=== PATIENT | female | born 1970 | race Caucasian/White ===

== ENCOUNTER 2018-09-08 08:58 | Outpatient (CLI) | payer OTHER ==
[2018-09-19] MEDS ORDERED: PREN1TAB98 PO (10:18)
[2018-09-19] MEDS ORDERED: OMEG1CAP57 PO (10:18)
[2018-09-19] MEDS ORDERED: LYSI500T PO (10:18)
== END 2018-09-08 23:59 | disposition home or self-care (01) ==
LOC: ROC 08:58
PROVIDERS: ATTEND Radiology Radiation Oncology
DX: C76.3 Malignant neoplasm of pelvis (principal); C51.9 Malignant neoplasm of vulva, unspecified; Z90.49 Acquired absence of other specified parts of digestive tract; Z88.6 Allergy status to analgesic agent; Z87.891 Personal history of nicotine dependence; Z80.51 Family history of malignant neoplasm of kidney; Z80.52 Family history of malignant neoplasm of bladder; Z82.49 Family history of ischemic heart disease and other diseases of the circulatory system; Z80.8 Family history of malignant neoplasm of other organs or systems
CPT/HCPCS: 99214; G0463

== ENCOUNTER → 2018-09-18 | Outpatient (CLI) | payer OTHER ==
[~2018-09-18] VITALS: Ht 165.1 cm; Wt 65.3 kg
[~2018-09-18] MED LIST: LYSI500T PO; OMEG1CAP57 PO; PREN1TAB98 PO; SODIUM CHLORIDE 0.9% 1,000ML IVBOLUS ONE
== END | disposition home or self-care (01) ==
LOC: RAD 12:53
PROVIDERS: ATTEND Specialist
DX: Z45.2 Encounter for adjustment and management of vascular access device (principal); C51.9 Malignant neoplasm of vulva, unspecified
CPT/HCPCS: 36573; C1751

== ENCOUNTER 2018-10-05 07:43 | Emergency (ER) | payer OTHER ==
[~2018-10-05] VITALS: Ht 165.1 cm; Wt 65.0 kg
[~2018-10-05 07:43] MED LIST changes: -SODIUM CHLORIDE 0.9% 1,000ML IVBOLUS ONE
[2018-10-05] MEDS ORDERED: SODIUM CHLORIDE 0.9% 1,000ML IVBOLUS ONE (08:30)
[2018-10-05] MEDS ORDERED: ACETAMINOPHEN 500 MG TABLET PO ONE (08:30)
[2018-10-05 09:06] LABS: BASOPHILS # (AUTO) 0.02 x10^3/uL (0-0.1); BASOPHILS % (AUTO) 0 % (0-1); EOSINOPHILS # (AUTO) 0.03 x10^3/uL (0-0.4); EOSINOPHILS % (AUTO) 1 % (1-7); LYMPHOCYTES # (AUTO) 0.38 x10^3/uL (1-3.4); LYMPHOCYTES % (AUTO) 7 % (22-44); MD NO; MEAN CORPUSCULAR HEMOGLOBIN 30.1 pg (27.0-34.8); MEAN CORPUSCULAR HGB CONC 33.4 g/dL (32.4-35.8); MEAN PLATELET VOLUME 8.3 fL (7.4-10.4); MONOCYTES % (AUTO) 9 % (2-9); NEUTROPHILS # (AUTO) 4.43 x10^3/uL (1.8-6.8); NEUTROPHILS % (AUTO) 83 % (42-75); PLATELET COUNT 178 x10^3/uL (130-400); RED CELL DISTRIBUTION WIDTH 13.9 % (9.6-15.2)
--- NOTE | 2018-10-05 09:10 | NUR ---
PICC LINE LEFT ARM ACCESSED WITH CAP CHANGED USING STERILE TECHNIQUE. FLUIDS INFUSING.
[2018-10-05 09:20] LABS: ALANINE AMINOTRANSFERASE 54 U/L (12-78); ALBUMIN 3.2 g/dL (3.4-5.0); ANION GAP 7 mmol/L (5-15); CALCIUM 8.7 mg/dL (8.5-10.1); CHLORIDE 105 mmol/L (98-107); CREATININE 0.66 mg/dL (0.55-1.02)
[2018-10-05 09:23] LABS: ALKALINE PHOSPHATASE 40 U/L (45-117); BILIRUBIN,TOTAL 0.4 mg/dL (0.2-1.0); TOTAL PROTEIN 6.5 g/dL (6.4-8.2)
[2018-10-05] MEDS ORDERED: POTASSIUM CHLORIDE 20 MEQ TAB.ER.PRT PO ONE (09:30)
[2018-10-05] MEDS ORDERED: MAGNESIUM SULFATE PMX 2GM/50ML 50 ML IV ONE (09:30)
[2018-10-05] MEDS ORDERED: ACETAMINOPHEN 500 MG TABLET ONE (09:35)
[2018-10-05] MEDS ORDERED: POTASSIUM CHLORIDE 20 MEQ TAB.ER.PRT ONE (09:36)
[2018-10-05] MEDS ORDERED: MAGNESIUM SULFATE PMX 2GM/50ML 50 ML ONE (09:54)
--- NOTE | 2018-10-05 10:21 | NUR ---
IV FLUIDS CONINTINUE TO INFUSE WITH MAGNESIUM STARTED. FAMILY AT BEDSIDE. PT RESTING WITH EYES CLOSED
--- NOTE | 2018-10-05 11:31 | NUR ---
FLUIDS CONTINUE TO INFUSE. PT STATES JAUREGUI IMPROVED
--- NOTE | 2018-10-05 12:20 | NUR ---
AFTER FLUIDS COMPLETED PT AMBULATED TO BATHROOM WITH STEADY GAIT, AT SIDE
[2018-10-05 12:45] VITALS: BP 112/64
== END 2018-10-05 12:47 | disposition home or self-care (01) ==
LOC: ED 10:07
DX: R55 Syncope and collapse (principal); E87.6 Hypokalemia; E83.42 Hypomagnesemia; Z87.891 Personal history of nicotine dependence
CPT/HCPCS: 36415; 80053; 83735; 85025; 93005; 96365; 96366; 99284; J3475; J7030

== ENCOUNTER 2018-10-27 08:29 | Emergency (ER) | payer OTHER ==
[~2018-10-27] VITALS: Ht 165.1 cm; Wt 59.1 kg
[2018-10-27 08:33] VITALS: BP 115/90
[2018-10-27] MEDS ORDERED: SODIUM CHLORIDE FLUSH 10ML SYR IVF ONE (10:00)
[2018-10-27] MEDS ORDERED: SODIUM CHLORIDE 0.9% 1,000ML IVBOLUS ONE (10:00)
[2018-10-27 10:20] LABS: BASOPHILS # (AUTO) 0.02 x10^3/uL (0-0.1); BASOPHILS % (AUTO) 0 % (0-1); EOSINOPHILS # (AUTO) 0.02 x10^3/uL (0-0.4); EOSINOPHILS % (AUTO) 0 % (1-7); LYMPHOCYTES # (AUTO) 0.31 x10^3/uL (1-3.4); LYMPHOCYTES % (AUTO) 5 % (22-44); MD NO; MEAN CORPUSCULAR HEMOGLOBIN 31.8 pg (27.0-34.8); MEAN CORPUSCULAR HGB CONC 34.6 g/dL (32.4-35.8); MEAN CORPUSCULAR VOLUME 91.8 fL (80-100); MEAN PLATELET VOLUME 8.7 fL (7.4-10.4); MONOCYTES # (AUTO) 0.47 x10^3/uL (0.2-0.8); MONOCYTES % (AUTO) 8 % (2-9); NEUTROPHILS # (AUTO) 5.25 x10^3/uL (1.8-6.8); NEUTROPHILS % (AUTO) 87 % (42-75); PLATELET COUNT 278 x10^3/uL (130-400); RED BLOOD COUNT 3.82 x10^6/uL (3.82-5.3); RED CELL DISTRIBUTION WIDTH 14.8 % (9.6-15.2)
[2018-10-27 10:31] LABS: ALANINE AMINOTRANSFERASE 41 U/L (12-78); ALBUMIN 3.7 g/dL (3.4-5.0); ANION GAP 12 mmol/L (5-15); CALCIUM 9.2 mg/dL (8.5-10.1); CHLORIDE 102 mmol/L (98-107); CREATININE 1.05 mg/dL (0.55-1.02)
[2018-10-27 10:33] LABS: ALKALINE PHOSPHATASE 58 U/L (45-117); BILIRUBIN,TOTAL 0.6 mg/dL (0.2-1.0); TOTAL PROTEIN 7.7 g/dL (6.4-8.2)
[2018-10-27 10:54] LABS: MICROSCOPIC INDICATED
[2018-10-27 10:55] LABS: CULTURE INDICATED? YES
[2018-10-27] MEDS ORDERED: CEFTRIAXONE PMX 1GM/50ML 50 ML IV ONE (11:51)
[2018-10-27] MEDS ORDERED: POTASSIUM CHLORIDE 20 MEQ TAB.ER.PRT ONE (11:54)
[2018-10-27] MEDS ORDERED: POTASSIUM CHLORIDE 20 MEQ TAB.ER.PRT PO ONE (12:00)
[2018-10-27] MEDS ORDERED: MAGNESIUM OXIDE 400 MG TABLET PO ONE (12:28)
[2018-10-27] MEDS ORDERED: MAGNESIUM OXIDE 400 MG TABLET ONE (12:39)
== END 2018-10-27 12:50 | disposition home or self-care (01) ==
LOC: ED 09:40
DX: E87.6 Hypokalemia (principal); E83.42 Hypomagnesemia; R53.1 Weakness; R19.7 Diarrhea, unspecified; Z90.89 Acquired absence of other organs; Z98.890 Other specified postprocedural states; Z88.5 Allergy status to narcotic agent
CPT/HCPCS: 36415; 80053; 81001; 83605; 83735; 85025; 87086; 93005; 99284; J7030

== ENCOUNTER 2018-11-20 07:44 | Outpatient (CLI) | payer OTHER | END 2018-11-20 23:59 | disposition home or self-care (01) | LOC: ROC 07:44 | PROVIDERS: ATTEND Radiology Radiation Oncology | DX: Z08 Encounter for follow-up examination after completed treatment for malignant neoplasm (principal); C51.9 Malignant neoplasm of vulva, unspecified | CPT/HCPCS: 99212; G0463 ==

== ENCOUNTER → 2018-12-22 | Outpatient (CLI) | payer OTHER | END | disposition home or self-care (01) | LOC: ROC 09:18 | PROVIDERS: ATTEND Radiology Radiation Oncology | DX: Z08 Encounter for follow-up examination after completed treatment for malignant neoplasm (principal); Z85.44 Personal history of malignant neoplasm of other female genital organs | CPT/HCPCS: 99212; G0463 ==

== ENCOUNTER → 2019-06-22 | Outpatient (CLI) | payer OTHER ==
[~2019-06-22] MED LIST changes: -LYSI500T PO; +LYSI500T8 PO
== END | disposition home or self-care (01) ==
LOC: ROC 08:16 → EDSTATUS 08-07 10:03
PROVIDERS: ATTEND Radiology Radiation Oncology
DX: C51.9 Malignant neoplasm of vulva, unspecified (principal)
CPT/HCPCS: 99212; G0463